=== PATIENT | male | born 1995 | race Asian ===

== ENCOUNTER 2017-02-20 10:13 | Emergency (ER) | payer OTHER ==
[~2017-02-20] VITALS: Ht 175.3 cm; Wt 86.4 kg
[2017-02-20 10:25] VITALS: BP 113/59; TEMP 97.5
[2017-02-20] MEDS ORDERED: ATHLETE'S FOOT1% TP (11:29)
[2017-02-20 11:55] VITALS: PULSE 64
[2017-02-20 14:16] LABS: CHLAMYDIA/TRACH by PCR Male NOT DETECTED; Neisseria Gon by PCR Male NOT DETECTED
== END 2017-02-20 11:55 | disposition home or self-care (01) ==
LOC: COL.ER 10:13
PROVIDERS: Emergency Medicine
DX: R21 Rash and other nonspecific skin eruption (principal); N48.89 Other specified disorders of penis

== ENCOUNTER 2017-09-02 00:22 | Emergency (ER) | payer OTHER ==
[~2017-09-02] VITALS: Ht 182.9 cm; Wt 81.8 kg
[~2017-09-02 00:22] MED LIST: ATHLETE'S FOOT1% TP
[2017-09-02 02:28] VITALS: BP 113/65; PULSE 68
[2017-09-02 02:32] VITALS: TEMP 97.6
== END 2017-09-02 02:35 | disposition home or self-care (01) ==
LOC: COL.ER 00:22
DX: F10.129 Alcohol abuse with intoxication, unspecified (principal); Y90.6 Blood alcohol level of 120-199 mg/100 ml
CPT/HCPCS: J2405; J7030